=== PATIENT | female | born 1975 | race Caucasian/White ===

== ENCOUNTER 2016-11-18 23:26 | Emergency (ER) | payer OTHER ==
[~2016-11-18] VITALS: Ht 170.2 cm; Wt 79.4 kg
[~2016-11-18 23:26] MED LIST: AMOX1TAB61 PO; PRED20TA PO
[2016-11-18 23:38] VITALS: BP 132/94
--- NOTE | 2016-11-18 23:44 | PHYS DOC ---
Past Medical History Past Medical History: Asthma, COPD Past Surgical History: Cholecystectomy, Tubal ligation Alcohol Use: None Drug Use: None Adult General Chief Complaint Chief Complaint: MULTIPLE COMPLAINTS [facility] HPI Patient is a 40 year old female presents emergency department stating that she' s had a sore throat with fever chills last night. She denies any nausea vomiting. She denies any cough or upper respiratory congestion. Patient states she's been taken [id number] dictation to help without relief. [] Review of Systems Review of Systems Constitutional: Denies fever or chills [] Eyes: Denies change in visual acuity, redness, or eye pain [] HENT: Denies nasal congestion C/o sore throat [] Respiratory: Denies cough or shortness of breath [] Cardiovascular: No additional information not addressed in HPI [] GI: Denies abdominal pain, nausea, vomiting, bloody stools or diarrhea [] : Denies dysuria or hematuria [] Musculoskeletal: Denies back pain or joint pain [] Integument: Denies rash or skin lesions [] Neurologic: Denies headache, focal weakness or sensory changes [] Current Medications Current Medications Current Medications Medications (Trade) Dose Ordered Sig/Mayuri Start Time Stop Time Status Last Admin Dose Admin Ibuprofen (Motrin) 800 mg 1X ONCE 11/18/16 23:45 11/18/16 23:46 UNV Allergies Allergies Allergies Coded Allergies Type Severity Reaction Last Updated Verified No Known Drug Allergies 09/21/16 No Physical Exam Physical Exam Constitutional: Well developed, well nourished, no acute distress, non-toxic appearance. [] HENT: Normocephalic, atraumatic, bilateral external ears normal, oropharynx moist, no oral exudates, nose normal. Bilateral TM without redness although appeared cloudy. Throat with exudate and erythema noted. No uvula deviation. No adenopathy noted. Eyes: PERRLA, EOMI, conjunctiva normal, no discharge. [] Neck: Normal range of motion, no tenderness, supple, no stridor. [] Cardiovascular:Heart rate regular rhythm, no murmur [] Lungs & Thorax: Bilateral breath sounds clear to auscultation [] Skin: Warm, dry, no erythema, no rash. [] Back: No tenderness Extremities: No tenderness, no cyanosis, no clubbing, ROM intact, no edema. [] Neurologic: Alert and oriented X 3, normal motor function, normal sensory function, no focal deficits noted. [] Psychologic: Affect normal, judgement normal, mood normal. [] Current Patient Data Vital Signs Vital Signs Date Time Temp Pulse Resp B/P Pulse Ox O2 Delivery O2 Flow Rate FiO2 11/18/16 23:38 98.2 104 20 97 Room Air 98.2 EKG EKG [] Radiology/Procedures Radiology/Procedures [] Course & Med Decision Making Course & Med Decision Making Pertinent Labs and Imaging studies reviewed. (See chart for details) Rapid strep was positive. Patient was offered penicillin injection as she refused and states that she would rather take pills for the next 10 days. Patient will be discharged on amoxicillin 500 mg twice a for the next 10 days. Recommended Tylenol or ibuprofen for fever chills generalized body aches and discomfort. Also recommended plenty of fluids such as water propel or Gatorade. May also use cough drops and throat lozenges as well as Cepacol throat sprays to help with the throat discomfort. Also recommended changing toothbrush in the 4-48 hours. Patient agrees with discharge instructions treatment regimens and follow-up recommendations. Signs and symptoms to return back to emergency department as been provided [] Dragon Disclaimer Dragon Disclaimer This electronic medical record was generated, in whole or in part, using a voice recognition dictation system. Departure Departure Impression: Primary Impression: Strep throat Disposition: 01 HOME, SELF-CARE Condition: STABLE Referrals: NO PCP (PCP) Patient Instructions: Strep Throat, [id number] Additional Instructions: Home to rest. Tylenol and ibuprofen for fever chills generalized body aches and discomfort. Drink plenty of fluids such as water or Gatorade or propel. Medication as prescribed. You may also use cough drops, throat lozenges or Cepacol throat sprays or warm salt water gargles to help soothe the throat. Change her toothbrush in the next 24-48 hours. Follow-up to primary care physician next 7-10 days. Return to emergency prior signs symptoms of become worse. Scripts Amoxicillin 500 Mg Capsule1 Cap PO BID #20 CAP Prov:ISAAC NIEVES NP 11/18/16 ISAAC NIEVES NP Nov 18, 2016 23:44
[2016-11-18] MEDS ORDERED: IBUPROFEN 800 MG TABLET. PO ONE (23:45)
[2016-11-18] MEDS ORDERED: AMOX500C PO (23:49)
[2016-11-19 07:32] LABS: NEGATIVE OBC STREP NEG; POSITIVE OBC STREP POS
== END 2016-11-18 23:50 | disposition home or self-care (01) ==
LOC: ER 23:26
DX: J02.0 Streptococcal pharyngitis (principal); J45.909 Unspecified asthma, uncomplicated; J44.9 Chronic obstructive pulmonary disease, unspecified; Z90.49 Acquired absence of other specified parts of digestive tract; Z98.51 Tubal ligation status
CPT/HCPCS: 87880; 99283

== ENCOUNTER 2017-01-23 01:47 | Emergency (ER) | payer OTHER ==
[~2017-01-23] VITALS: Ht 170.2 cm; Wt 74.8 kg
[~2017-01-23 01:47] MED LIST changes: +AMOX500C PO
[2017-01-23] MEDS ORDERED: PRED-220 PO (02:24)
[2017-01-23] MEDS ORDERED: HYDR-971 PO (02:24)
--- NOTE | 2017-01-23 02:24 | PHYS DOC ---
Past Medical History Past Medical History: Asthma, COPD, Migraines Past Surgical History: Cholecystectomy, Tubal ligation Alcohol Use: None Drug Use: None Adult General Chief Complaint Chief Complaint: HEADACHE HPI HPI Patient is a 41 year old female who presents with complaint of right-sided headache. Patient states that she has had symptoms constantly for the past 1.5 months. Patient states that the pain has been sharp and radiates from her right eye to the back of her neck. Patient denies any focal neurologic symptoms associated with her pain. Patient denies any known exacerbating factors. Patient states that she does have history of migraine headaches and states that normally they respond with ibuprofen. Patient states however that ibuprofen has not helped with her current symptoms. Patient has not had any nausea, vomiting, or vision loss associated with her symptoms. Patient states that she has not had any medical evaluation for her headache since onset. Review of Systems Review of Systems Constitutional: Denies fever or chills [] Eyes: Denies change in visual acuity, redness, or eye pain [] HENT: Denies nasal congestion or sore throat [] Respiratory: Denies cough or shortness of breath [] Cardiovascular: No additional information not addressed in HPI [] GI: Denies abdominal pain, nausea, vomiting, bloody stools or diarrhea [] : Denies dysuria or hematuria [] Musculoskeletal: Denies back pain or joint pain [] Integument: Denies rash or skin lesions [] Neurologic: Headache, denies focal weakness or sensory changes [] Endocrine: Denies polyuria or polydipsia [] Current Medications Current Medications Current Medications Medications (Trade) Dose Ordered Sig/[facility] Start Time Stop Time Status Last Admin Dose Admin Prednisone (Prednisone) 50 mg 1X ONCE 01/23/17 02:30 01/23/17 02:31 Allergies Allergies Allergies Coded Allergies Type Severity Reaction Last Updated Verified No Known Drug Allergies 09/21/16 No Physical Exam Physical Exam Constitutional: Well developed, well nourished, no acute distress, non-toxic appearance. [] HENT: Normocephalic, atraumatic, bilateral external ears normal, oropharynx moist, no oral exudates, nose normal. [] Eyes: PERRLA, EOMI, conjunctiva normal, no discharge. [] Neck: Normal range of motion, no tenderness, supple, no stridor. [] Cardiovascular:Heart rate regular rhythm, no murmur [] Lungs & Thorax: Bilateral breath sounds clear to auscultation [] Abdomen: Bowel sounds normal, soft, no tenderness, no masses, no pulsatile masses. [] Skin: Warm, dry, no erythema, no rash. [] Back: No tenderness, no CVA tenderness. [] Extremities: No tenderness, no cyanosis, no clubbing, ROM intact, no edema. [] Neurologic: Alert and oriented X 3, normal motor function, normal sensory function, no focal deficits noted. [] Current Patient Data Vital Signs Vital Signs Date Time Temp Pulse Resp B/P Pulse Ox O2 Delivery O2 Flow Rate FiO2 01/23/17 01:47 98.0 91 16 140/86 97 Room Air 98.0 EKG EKG Not performed [] Radiology/Procedures Radiology/Procedures Not performed [] Course & Med Decision Making Course & Med Decision Making Pertinent Labs and Imaging studies reviewed. (See chart for details) Patient's vital signs are normal and patient's exam is unremarkable. Patient does not display tenderness over the right temporal artery. Patient's symptoms are likely consistent with atypical migraine headache or possible tension type headache. Due to responsiveness with anti-inflammatories for past headaches, the patient will be placed on a steroid taper as the patient's headache has lasted for more than one month and will likely need a longer course of treatment for resolution. Patient was given 50 mg of prednisone in the emergency department. Patient will also be prescribed [place] to help with breakthrough pain. Advised patient to follow-up in one to [address] Flores of neurology and return to the emergency department for any worsening symptoms. Patient voiced understanding and in agreement with treatment plan. Dragon Disclaimer Dragon Disclaimer This electronic medical record was generated, in whole or in part, using a voice recognition dictation system. Departure Departure Impression: Primary Impression: Headache Disposition: 01 HOME, SELF-CARE Condition: STABLE Referrals: NO PCP (PCP) Patient Instructions: General Headache Without Cause Additional Instructions: Follow-up with Dr. Flores in 1 to 2 weeks. Return to the emergency department for any worsening symptoms. Scripts Hydrocodone/Apap 5-325 ([place] 5-325 Tablet)1 Each Tablet1-2 Tab PO Q4-6HRS PRN PAIN #15 TAB Prov:KANCHAN KENDALL MD 01/23/17 Prednisone 10 Mg Euitko86 Mg PO UD PREDNISONE TAPER #39 TAB Ref 0 Take 3 tablets by mouth twice a day for 3 days, then take 2 tablets by mouth twice a day for 3 days, then take 1 tablet by mouth twice a day for 3 days, then take 1 tablet by mouth daily x 3 days, then stop. Prov:KANCHAN KENDALL MD 01/23/17 Problem Qualifiers Primary Impression: Headache Headache type: unspecified Headache chronicity pattern: unspecified pattern Intractability: not intractable Qualified Code: R51 - Headache KANCHAN KENDALL MD Jan 23, 2017 02:24
[2017-01-23 02:30] VITALS: BP 132/74
[2017-01-23] MEDS ORDERED: predniSONE 20 MG TABLET PO ONE (02:30)
== END 2017-01-23 02:45 | disposition home or self-care (01) ==
LOC: ER 01:47
DX: R51 Headache (principal); G43.909 Migraine, unspecified, not intractable, without status migrainosus; J44.9 Chronic obstructive pulmonary disease, unspecified; Z90.49 Acquired absence of other specified parts of digestive tract; Z98.51 Tubal ligation status
CPT/HCPCS: 99283; J7512